=== PATIENT | male | born 2000 | race Caucasian/White ===

== ENCOUNTER 2021-07-19 17:17 | Emergency (ER) | payer OTHER ==
[2021-07-19 17:58] LABS: HEMOGLOBIN 15.7 gm/dl (14.0-17.5); RED BLOOD COUNT 5.19 M/UL (4.20-5.50); WHITE BLOOD COUNT 6.6 K/UL (4.5-11.0)
[2021-07-19 19:05] LABS: BUN/CREATININE RATIO 10 (0-10)
== END 2021-07-19 21:04 | disposition home or self-care (01) ==
LOC: ER1 17:17
PROVIDERS: Nurse Practitioner
DX: R07.9 Chest pain, unspecified (principal); Z20.822 Contact with and (suspected) exposure to COVID-19; F17.290 Nicotine dependence, other tobacco product, uncomplicated
CPT/HCPCS: 0240U; 71045; 80053; 80307; 81001; 82550; 82553; 84484; 85025; 93005; 99285